=== PATIENT | female | born 1965 | race Caucasian/White ===

== ENCOUNTER 2018-04-22 07:30 | Outpatient (CLI) | payer BC ==
[~2018-04-22] VITALS: Ht 172.8 cm; Wt 188.0 kg
[2018-04-22] VITALS (23 sets, daily range): BP systolic 137–167; BP diastolic 62–96; PULSE 56–85; TEMP 97.7–98.2
[2018-04-22 08:25] LABS: HEMATOCRIT 37.8 % (37.0-47.0); HEMOGLOBIN 12.7 g/dl (12.5-16.0); MEAN CELL VOLUME 88 fl (80.0-100.0); MEAN CORPUSCULAR HEMOGLOBIN 30 pg (27.0-31.0); MEAN CORPUSCULAR HGB CONC 34 g/dl (33.0-37.0); MEAN PLATELET VOLUME 9.5 fl (7.4-10.4); PLATELET COUNT 246 K/mm3 (130-400); REDCELL DISTRIBUTION WIDTH-CV 15.1 % (11.5-14.5)
[2018-04-22 08:37] LABS: INR 0.9 (0.8-3.0); PROTHROMBIN TIME 10.3 SECONDS (9.7-12.8)
[2018-04-22] MEDS ORDERED: BYSTOLIC5 MG PO (08:43)
[2018-04-22] MEDS ORDERED: LIPITOR 10MG10 MG PO (08:58)
[2018-04-22] MEDS ORDERED: MICROZIDE12.5 MG PO (08:59)
[2018-04-22] MEDS ORDERED: CYMBALTA 60MG60 MG PO (09:00)
[2018-04-22] MEDS ORDERED: PROZAC 20MG20 MG PO (09:01)
[2018-04-22] MEDS ORDERED: GLUCOPHAGE500 MG/TAB PO (09:01)
[2018-04-22] MEDS ORDERED: LASIX 40MG TABL40 MG PO (09:02)
[2018-04-22] MEDS ORDERED: COZAAR 25MG25 MG/TAB PO (09:03)
== END 2018-04-22 18:20 | disposition home or self-care (01) ==
LOC: COL.RAD 07:30
PROVIDERS: Internal Medicine
DX: I12.9 Hypertensive chronic kidney disease with stage 1 through stage 4 chronic kidney disease, or unspecified chronic kidney disease (principal); N18.1 Chronic kidney disease, stage 1; R80.8 Other proteinuria; E66.8 Other obesity